=== PATIENT | male | born 1965 | race Caucasian/White ===

== ENCOUNTER 2021-03-28 12:20 | Emergency (ER) | payer BC ==
[~2021-03-28] VITALS: Ht 188 cm; Wt 104.3 kg
[2021-03-28 12:31] VITALS: BP_SYST 165
[2021-03-28] MEDS ORDERED: ONDA-8 TL (14:17)
== END 2021-03-28 14:15 | disposition home or self-care (01) ==
LOC: SED 12:20
DX: S06.0X0A Concussion without loss of consciousness, initial encounter (principal); Z79.899 Other long term (current) drug therapy; W51.XXXA Accidental striking against or bumped into by another person, initial encounter; Y93.23 Activity, snow (alpine) (downhill) skiing, snowboarding, sledding, tobogganing and snow tubing; Y92.89 Other specified places as the place of occurrence of the external cause; Y99.8 Other external cause status
CPT/HCPCS: 70450-TC; 76376; 82962; 99284